=== PATIENT | female | born 2000 | race Caucasian/White ===

== ENCOUNTER 2020-08-19 22:10 | Emergency (ER) | payer BC ==
[~2020-08-19] VITALS: Ht 149.9 cm; Wt 56.8 kg
[2020-08-19 22:41] VITALS: TEMP 98.9
[2020-08-19] MEDS ORDERED: VENTOLIN0.09 MG IH (23:44)
[2020-08-19 23:54] VITALS: BP 132/96; PULSE 78
== END 2020-08-19 23:54 | disposition home or self-care (01) ==
LOC: COL.ER 22:10
DX: T17.990A Other foreign object in respiratory tract, part unspecified in causing asphyxiation, initial encounter (principal)

== ENCOUNTER → 2022-01-07 | Outpatient (CLI) | payer BC ==
[~2022-01-07] MED LIST: VENTOLIN0.09 MG IH
== END ==
LOC: COL.RAD 07:30
DX: N92.6 Irregular menstruation, unspecified (principal)